=== PATIENT | male | born 1935 | race Caucasian/White ===

== ENCOUNTER → 2018-06-13 | Outpatient (CLI) | payer OTHER ==
[2018-06-13 13:01] LABS: CREATININE 1.2 mg/dL (0.6-1.3)
== END ==
LOC: M.MRI 06-04 18:22 → M.LAB 12:20 → M.MRI 13:30
PROVIDERS: Internal Medicine
DX: G93.9 Disorder of brain, unspecified (principal); I48.2 Chronic atrial fibrillation; E78.5 Hyperlipidemia, unspecified; E11.9 Type 2 diabetes mellitus without complications; I10 Essential (primary) hypertension; R41.3 Other amnesia

== ENCOUNTER → 2018-11-18 | Outpatient (CLI) | payer OTHER | LOC: M.RAD 12:59 | DX: M77.32 Calcaneal spur, left foot (principal); Z68.30 Body mass index [BMI] 30.0-30.9, adult ==

== ENCOUNTER → 2021-05-05 | Outpatient (CLI) | payer OTHER | LOC: M.ULTRA 12:28 | PROVIDERS: ATTEND Internal Medicine | DX: N50.89 Other specified disorders of the male genital organs (principal) ==